=== PATIENT | male | born 1965 ===

== ENCOUNTER 2017-09-08 22:17 | Emergency (ER) | payer OTHER ==
[2017-09-08] MEDS ORDERED: Sodium Chloride 0.9% 1,000 ML IV STA (23:30)
[2017-09-08] MEDS ORDERED: DiphenhydrAMINE 50 mg/ml Inj IV ONE (23:30)
--- NOTE | 2017-09-08 23:33 | ED PDOC ---
HPI: Abdomen Time Seen by Provider: 09/08/17 23:04 Chief Complaint (Nursing): Abdominal Pain Chief Complaint (Provider): abdominal pain History Per: Patient History/Exam Limitations: no limitations Onset/Duration Of Symptoms: Days (6) Current Symptoms Are (Timing): Better Location Of Pain/Discomfort: RUQ, Epigastric, LUQ Quality Of Discomfort: Cramping Associated Symptoms: Diarrhea Additional Complaint(s): 52 y/o male presents for evaluation of upper abdominal pain x 6 hours. Associated 4 episodes of nonbloody diarrhea. Symptoms improved with [place] and Pepto Bismol. Patient now notes pruritic rash to back since arrival to ED, states first time taking Pepto, otherwise denies known allergen. DEnies fever, nausea/vomiting, chest pain, shortness of breath, palpitations, urinary symptoms, recent travel, sick contacts Past Medical History Reviewed: Historical Data, Nursing Documentation, Vital Signs Vital Signs: Last Vital Signs Temp 98.6 F 09/08/17 22:23 Pulse 80 09/08/17 22:23 Resp 18 09/08/17 22:23 BP 127/83 09/08/17 22:23 Pulse Ox 100 09/08/17 23:33 - Medical History PMH: No Chronic Diseases - Surgical History Surgical History: No Surg Hx - Family History Family History: States: No Known Family Hx - Living Arrangements Living Arrangements: With Family - Home Medications Home Medications: Ambulatory Orders Medication Instructions Recorded Dicyclomine [Bentyl] 20 mg PO TID PRN #15 tab 09/09/17 - Allergies Allergies/Adverse Reactions: Allergies Allergy/AdvReac Type Severity Reaction Status Date / Time No Known Allergies Allergy Verified 09/08/17 22:23 Review of Systems ROS Statement: Except As Marked, All Systems Reviewed And Found Negative Gastrointestinal: Positive for: Abdominal Pain, Diarrhea Physical Exam - Reviewed Nursing Documentation Reviewed: Yes Vital Signs Reviewed: Yes - Physical Exam Appears: Positive for: Well, Non-toxic, No Acute Distress Head Exam: Positive for: ATRAUMATIC, NORMAL INSPECTION, NORMOCEPHALIC Skin: Positive for: Normal Color Eye Exam: Positive for: Normal appearance ENT: Positive for: Normal ENT Inspection Cardiovascular/Chest: Positive for: Regular Rate, Rhythm Respiratory: Positive for: Normal Breath Sounds Gastrointestinal/Abdominal: Positive for: Tenderness (epigastric) Back: Positive for: Normal Inspection Extremity: Positive for: Normal ROM Neurologic/Psych: Positive for: Alert, Oriented - Laboratory Results Result Diagrams: 09/09/17 02:25 09/09/17 02:25 - ECG O2 Sat by Pulse Oximetry: 100 - Progress ED Course And Treament: labs, IV fluids, PO bentyl On re-eval, patient states he is feeling better Patient educated on findings, discharged with rx bentyl Advised fluids, BRAT diet Follow up PMD 2-3 days. Return precautions given Disposition - Clinical Impression Clinical Impression: Abdominal discomfort, Diarrhea - Patient ED Disposition Is Patient to be Admitted: No Counseled Patient/Family Regarding: Studies Performed, Diagnosis, Need For Followup, Rx Given - Disposition Referrals: [facility] [Outside] Disposition: Routine/Home Disposition Time: 02:44 Condition: IMPROVED Prescriptions: Dicyclomine [Bentyl] 20 mg PO TID PRN #15 tab PRN Reason: Pain, Mild (1-3) Instructions: Diarrhea in Adolescents and Adults Forms: [facility] (Danish)
[2017-09-09 00:21] LABS: URINE BACTERIA RARE (<OCC); URINE BILIRUBIN NEGATIVE (NEGATIVE); URINE BLOOD NEGATIVE (NEGATIVE); URINE CLARITY SLIGHTY-CLOUDY (Clear); URINE COLOR YELLOW (YELLOW); URINE GLUCOSE (UA) NEG (Normal); URINE LEUKOCYTE ESTERASE NEG Leu/uL (Negative); URINE PROTEIN 30 mg/dL (NEGATIVE); URINE UROBILINOGEN 0.2-1.0 mg/dL (0.2-1.0)
[2017-09-09 02:31] LABS: BASO % 0.4 % (0.0-2.0); EOS # 0.1 K/uL (0.0-0.7); HEMOGLOBIN 14.6 g/dL (12.0-18.0); LYMPH # 0.9 K/uL (1.0-4.3); LYMPH % 12.9 % (20.0-40.0); MEAN CELL VOLUME 92.4 fl (80.0-94.0); MEAN CORPUSCULAR HEMOGLOBIN 32.5 pg (27.0-31.0); MEAN CORPUSCULAR HGB CONC 35.2 g/dL (33.0-37.0); MEAN PLATELET VOLUME 10.4 fl (7.2-11.7); MONO # 0.4 K/uL (0.0-0.8); MONO % 5.8 % (0.0-10.0); NEUT # 5.4 K/uL (1.8-7.0); NEUT % 79.9 % (50.0-75.0); RBC 4.48 Mil/uL (4.40-5.90); RED CELL DISTRIBUTION WIDTH 12.8 % (11.5-14.5); WHITE BLOOD COUNT 6.8 K/uL (4.8-10.8)
[2017-09-09 02:42] LABS: ALB/GLOB RATIO 1.2 (1.0-2.1); ALBUMIN 3.6 g/dL (3.5-5.0); ALT/SGPT 41 U/L (21-72); AST/SGOT 46 U/L (17-59); BLOOD UREA NITROGEN 19 mg/dl (9-20); CALCIUM 8.1 mg/dL (8.4-10.2); GFR AFRICAN-AMERICAN > 60; GFR NON-AFRICAN AMERICAN > 60; LIPASE 59 U/L (23-300)
[2017-09-09 03:00] VITALS: BP 123/59; PULSE 67; RESP 14; TEMP 98.5; O2SAT 96
--- NOTE | 2017-09-10 12:14 | CARD ---
APPROVED REPORT Date of service: 09/09/2017 EKG Measurement Heart [id number] <Conclusion> Normal sinus rhythm Normal ECG
== END 2017-09-09 03:00 | disposition home or self-care (01) ==
LOC: H.ER 22:17
DX: R10.9 Unspecified abdominal pain (principal); R19.7 Diarrhea, unspecified
CPT/HCPCS: 80053; 81003; 83690; 85025; 96360; J1200; J7030